=== PATIENT | female | born 1970 | race Two or more races ===

== ENCOUNTER 2018-01-14 22:13 | Emergency (ER) | payer OTHER ==
[~2018-01-14] VITALS: Ht 162.6 cm; Wt 80.3 kg
[~2018-01-14 22:13] MED LIST: CITA20TA6 PO; SERT50TA5 PO
[2018-01-14 22:18] VITALS: BP 131/82
[2018-01-14 23:40] LABS: BASOPHILS # (AUTO) 0.04 x10^3/uL (0-0.1); BASOPHILS % (AUTO) 0 % (0-1); EOSINOPHILS # (AUTO) 0.14 x10^3/uL (0-0.4); EOSINOPHILS % (AUTO) 2 % (1-7); LYMPHOCYTES # (AUTO) 1.29 x10^3/uL (1-3.4); LYMPHOCYTES % (AUTO) 14 % (22-44); MD NO; MEAN CORPUSCULAR HEMOGLOBIN 21.8 pg (27.0-34.8); MEAN CORPUSCULAR HGB CONC 31.7 g/dL (32.4-35.8); MEAN CORPUSCULAR VOLUME 68.9 fL (80-100); MEAN PLATELET VOLUME 7.8 fL (7.4-10.4); MONOCYTES # (AUTO) 0.61 x10^3/uL (0.2-0.8); MONOCYTES % (AUTO) 7 % (2-9); NEUTROPHILS # (AUTO) 7.27 x10^3/uL (1.8-6.8); NEUTROPHILS % (AUTO) 78 % (42-75); PLATELET COUNT 354 x10^3/uL (130-400); RED BLOOD COUNT 4.08 x10^6/uL (3.82-5.3); RED CELL DISTRIBUTION WIDTH 18.3 % (9.6-15.2)
[2018-01-14 23:48] LABS: ALANINE AMINOTRANSFERASE 35 U/L (12-78); ALBUMIN 3.3 g/dL (3.4-5.0); ANION GAP 7 mmol/L (5-15); CALCIUM 8.2 mg/dL (8.5-10.1); CHLORIDE 108 mmol/L (98-107)
[2018-01-14 23:54] LABS: ALKALINE PHOSPHATASE 85 U/L (45-117); BILIRUBIN,TOTAL 0.1 mg/dL (0.2-1.0); CREATININE 0.93 mg/dL (0.55-1.02); T4 (THYROXINE) 8.9 mcg/dL (4.8-13.9); TOTAL PROTEIN 7.6 g/dL (6.4-8.2); TROPONIN I < 0.015 ng/mL (0.000-0.045)
== END 2018-01-15 00:51 | disposition home or self-care (01) ==
LOC: ED 23:24
DX: R53.1 Weakness (principal); F32.9 Major depressive disorder, single episode, unspecified; F41.1 Generalized anxiety disorder
CPT/HCPCS: 36415; 80053; 83735; 84436; 84443; 84484; 84703; 85025; 93005; 99285

== ENCOUNTER 2019-12-23 17:55 | Observation (INO) | payer OTHER ==
[~2019-12-23] VITALS: Ht 162.6 cm; Wt 72.0 kg
[~2019-12-23 17:55] MED LIST changes: +SERT50TA28 PO; -SERT50TA5 PO
--- NOTE | 2019-12-23 18:38 | NUR ---
PT REPORTS VALENTE AND LEFT ARM PAIN X5 DAYS. STATES VALENTE IS THROBBING TODAY. PLACED ON CARDIAC AND VITALS MONITORS, FALL PRECAUTIONS IN PLACE, CALL LIGHT WITHIN REACH.
[2019-12-23] MEDS ORDERED: SERT25TA3 PO (18:42)
[2019-12-23 18:46] LABS: BASOPHILS # (AUTO) 0.01 x10^3/uL (0-0.1); BASOPHILS % (AUTO) 0 % (0-1); EOSINOPHILS # (AUTO) 0.03 x10^3/uL (0-0.4); EOSINOPHILS % (AUTO) 0 % (1-7); LYMPHOCYTES % (AUTO) 11 % (22-44); MD NO; MEAN CORPUSCULAR HEMOGLOBIN 28.4 pg (27.0-34.8); MEAN CORPUSCULAR HGB CONC 33.2 g/dL (32.4-35.8); MEAN CORPUSCULAR VOLUME 85.4 fL (80-100); MEAN PLATELET VOLUME 8.1 fL (7.4-10.4); MONOCYTES # (AUTO) 0.41 x10^3/uL (0.2-0.8); MONOCYTES % (AUTO) 5 % (2-9); NEUTROPHILS # (AUTO) 6.51 x10^3/uL (1.8-6.8); NEUTROPHILS % (AUTO) 83 % (42-75); PLATELET COUNT 337 x10^3/uL (130-400); RED BLOOD COUNT 4.46 x10^6/uL (3.82-5.3); RED CELL DISTRIBUTION WIDTH 19.1 % (9.6-15.2)
[2019-12-23 18:53] LABS: ANION GAP 8 mmol/L (5-15); CALCIUM 9.1 mg/dL (8.5-10.1); CHLORIDE 105 mmol/L (98-107)
[2019-12-23 18:58] LABS: MICROSCOPIC INDICATED
[2019-12-23 18:59] LABS: ALANINE AMINOTRANSFERASE 21 U/L (12-78); ALKALINE PHOSPHATASE 72 U/L (45-117); BILIRUBIN,TOTAL 0.5 mg/dL (0.2-1.0); CREATININE 0.74 mg/dL (0.55-1.02); TOTAL PROTEIN 8.5 g/dL (6.4-8.2); TROPONIN I < 0.015 ng/mL (0.000-0.045)
--- NOTE | 2019-12-23 20:29 | NUR ---
Pt not wanting to be admitted to hospital at this time. Informed MD of this and Dr. Boyer informing her of benefits of and risks. Pt verbalizing she would like to go home.
--- NOTE | 2019-12-23 21:45 | NUR ---
Pt not wanting to go home and would like to be admitted at this time.
[2019-12-23] MEDS ORDERED: FERR324T5 PO (22:01)
--- NOTE | 2019-12-23 22:04 | NUR ---
Report called to Vir[facility] CHOUDHUR[facility]
[2019-12-23 22:52] VITALS: BP 154/72
[2019-12-23] MEDS ORDERED: KETOROLAC 30 MG/1 ML IV PRN (23:00)
[2019-12-23] MEDS ORDERED: ENALAPRILAT 1.25 MG/ML, 2ML IVPush PRN (23:00)
[2019-12-23] MEDS: ACETAMINOPHEN 325 MG TABLET PO PRN (23:57)
[2019-12-23] MEDS: HEPARIN 5,000 UNITS/ML, 1ML SQ SCH (23:57)
[2019-12-24 01:39] LABS: TROPONIN I < 0.015 ng/mL (0.000-0.045)
[2019-12-24 01:59] VITALS: BP 112/66
[2019-12-24] MEDS: HEPARIN 5,000 UNITS/ML, 1ML SQ SCH ×2 (08:16→15:08)
[2019-12-24] MEDS: ACETAMINOPHEN 325 MG TABLET PO PRN (08:21)
[2019-12-24 08:36] VITALS: BP 130/82
[2019-12-24 08:44] LABS: ANION GAP 4 mmol/L (5-15); CALCIUM 9.2 mg/dL (8.5-10.1); CHLORIDE 108 mmol/L (98-107)
[2019-12-24 08:49] LABS: CHOL/HDL RATIO 4.3; CHOLESTEROL, TOTAL 187 mg/dL (140-239); CREATININE 0.65 mg/dL (0.55-1.02); HDL CHOL % 23 % (28-40); HDL CHOLESTEROL (DIRECT) 43 mg/dL (40-60); LDL CHOLESTEROL,CALCULATED 117 mg/dL (54-169); LDL/HDL RATIO 2.7 (0.5-3.0); TRIGLYCERIDES 133 mg/dL (50-200); TROPONIN I < 0.015 ng/mL (0.000-0.045); VLDL CHOLESTEROL 27 mg/dL (0-25)
[2019-12-24] MEDS ORDERED: FERROUS SULFATE 325 MG TABLET PO SCH (09:00)
[2019-12-24] MEDS ORDERED: ASPIRIN 81 MG TABLET CHEW PO SCH (09:00)
[2019-12-24 13:50] VITALS: BP 123/76
[2019-12-24] MEDS ORDERED: LISI10TA2 PO (15:36)
== END 2019-12-24 16:52 | disposition home or self-care (01) ==
LOC: ED 21:01 → EDIP 21:19 → INTOOBSV 21:19 → 4EST 22:16 → 4WST 12-24 02:00 → 4EST 12-24 02:01
PROVIDERS: ADMIT Hospitalist; ATTEND Hospitalist
DX: R07.89 Other chest pain (principal); R29.818 Other symptoms and signs involving the nervous system; R51 Headache; I10 Essential (primary) hypertension; R31.9 Hematuria, unspecified; D50.9 Iron deficiency anemia, unspecified; G51.0 Bell's palsy; F41.9 Anxiety disorder, unspecified; Z79.899 Other long term (current) drug therapy
CPT/HCPCS: 36415; 70450; 80048; 80053; 80061; 81001; 83605; 84484; 84703; 85025; 87086; 87147; 93005; 93306; 96372; 96374; 99285; G0378; J1644; J1885

== ENCOUNTER 2020-10-07 12:27 | Emergency (ER) | payer OTHER ==
[~2020-10-07] VITALS: Ht 160 cm; Wt 77.9 kg
[~2020-10-07 12:27] MED LIST changes: +FERR324T5 PO; +LISI10TA19 PO; +SERT-331 PO
--- NOTE | 2020-10-07 12:57 | NUR ---
PT HERE WITH C/O PRODUCTIVE COUGH AND SINUS CONGESTION X11 DAYS.
[2020-10-07] MEDS ORDERED: DULO60CA56 PO (13:00)
[2020-10-07 13:56] VITALS: BP 123/77
== END 2020-10-07 14:16 | disposition home or self-care (01) ==
LOC: ED 14:00
DX: R05 Cough (principal); Z88.8 Allergy status to other drugs, medicaments and biological substances
CPT/HCPCS: 71045; 99283